=== PATIENT | male | born 1980 | race African-American/Black ===

== ENCOUNTER 2024-03-13 11:20 | Emergency (ER) | payer MEDICAID ==
[~2024-03-13] VITALS: Ht 165.1 cm; Wt 91.0 kg
[2024-03-13 11:22] VITALS: O2SAT 97
[2024-03-13] MEDS: METHOCARBAMOL 500MG TABLET PO ONE (13:42)
[2024-03-13] MEDS: IBUPROFEN 600MG TABLET PO ONE (13:42)
[2024-03-13] MEDS ORDERED: IBUP-2029 MT (13:57)
[2024-03-13] MEDS ORDERED: METH-653 MT (13:57)
[2024-03-13 14:02] VITALS: BP 130/92; PULSE 63; RESP 16; TEMP 98.3; O2SAT 97
== END 2024-03-13 14:29 | disposition home or self-care (01) ==
LOC: ER 11:20
DX: S33.5XXA Sprain of ligaments of lumbar spine, initial encounter (principal); Z88.0 Allergy status to penicillin; Z98.890 Other specified postprocedural states; W01.0XXA Fall on same level from slipping, tripping and stumbling without subsequent striking against object, initial encounter; Y93.89 Activity, other specified; Y92.89 Other specified places as the place of occurrence of the external cause; Y99.8 Other external cause status
CPT/HCPCS: 72100; 99283